=== PATIENT | female | born 1950 | race Two or more races ===

== ENCOUNTER 2022-10-23 17:23 | Inpatient (IN) | payer OTHER ==
[~2022-10-23] VITALS: Ht 157.5 cm; Wt 60.3 kg
[2022-10-23] MEDS ORDERED: SYNTHROID100 MCG PO (18:03)
[2022-10-23] MEDS ORDERED: SYNTHROID88 MCG PO (18:03)
--- NOTE | 2022-10-23 18:14 | NUR ---
SE RECIBE PTE ALERTA Y ORIENTADA X3 CUAL REFIERE DOLOR ABDOMINAL LADO DERECHO, DIARREAS Y VOMITOS DESDE MARYCARMEN. SE JIM S/V, SE REALIZA EKG Y S EPRESENTA A , REFIERE UBICAR EN AYDEN #13 BP MANUAL 78/40.
--- NOTE | 2022-10-23 18:32 | NUR ---
SE EDUCA PACIENTE SOBRE EL [place] MEDICO Y ESTA REFIER ENTENDER. SE CANALIZA Y SE COLOCA IVF Y SE ADMINITRAN MEDICAMENTOS YOSHI ORDEN MEDICA. SE JIM MUESTRAS DE RASHAAD Y SE ENVIAN. SE ENTREGA POTE DE FECAL
--- NOTE | 2022-10-23 22:11 | NUR ---
SE MONITOREAN BP EN SE NOTIFICA A KRYSTIN INDICA MANTENER EN OBSERVACION HASTA QUE INDIQUE LA LASHAY. ADDMITING.
--- NOTE | 2022-10-23 22:40 | NUR ---
se recibe pte femenina de 72 anos alerta y orientada x3 quien al momento refier shawna tener dolor. pte se obserba en descanso absoluto en cama. pte pend a consulta con med interna. pte al momento drip de 0.9% nss a 150ml/hr. pte bajo obserbacion por cambio en servin condicion. pte conectada a monitor cardiaco.
[2022-10-28] MEDS ORDERED: PIROXICAM20 MG (14:52)
[2022-10-28] MEDS ORDERED: MAXIMUM D3325 MCG (14:52)
[2022-10-28] MEDS ORDERED: HYOSCYAMINE0.125 M1 (14:52)
== END 2022-11-03 13:19 | disposition home or self-care (01) | DRG 371 ==
LOC: ER 17:23 → ICU 23:05 → ICU-2 23:05 → ICU 10-24 21:00 → SURH 10-27 20:50
PROVIDERS: ADMIT Internal Medicine; ATTEND Internal Medicine
PROC: BW21ZZZ Computerized Tomography (CT Scan) of Abdomen and Pelvis (ICD-10-PCS; 2022-10-23)
PROC: 4A12X4Z Monitoring of Cardiac Electrical Activity, External Approach (ICD-10-PCS; principal; 2022-10-29)
PROC: BW21YZZ Computerized Tomography (CT Scan) of Abdomen and Pelvis using Other Contrast (ICD-10-PCS; 2022-10-31)
DX: A04.72 Enterocolitis due to Clostridium difficile, not specified as recurrent (principal); R65.21 Severe sepsis with septic shock; N17.9 Acute kidney failure, unspecified; K90.49 Malabsorption due to intolerance, not elsewhere classified; E86.0 Dehydration; E87.6 Hypokalemia; E83.42 Hypomagnesemia; E03.9 Hypothyroidism, unspecified; Z20.822 Contact with and (suspected) exposure to COVID-19; N20.0 Calculus of kidney; D69.6 Thrombocytopenia, unspecified

== ENCOUNTER 2024-11-03 16:40 | Emergency (ER) | payer OTHER ==
[~2024-11-03] VITALS: Ht 157.5 cm; Wt 61.2 kg
[~2024-11-03 16:40] MED LIST: HYOSCYAMINE0.125 M1; MAXIMUM D3325 MCG; PIROXICAM20 MG; SYNTHROID100 MCG PO; SYNTHROID88 MCG PO
[2024-11-03] MEDS ORDERED: 0.9 % SODIUM CHLORIDE 1,000 ML IV ONE (17:45)
[2024-11-03] MEDS ORDERED: FAMOtidine 10 MG/ML (4ML VIAL) IV ONE (17:45)
[2024-11-03] MEDS ORDERED: HYOSCYAMINE SULFATE 0.125 MG TAB.SUBL SL ONE (17:45)
[2024-11-03 18:41] LABS: BASO % 0.2 % (0.1-1.2); HEMATOCRIT 35.7 % (34.1-44.9); HEMOGLOBIN 11.9 g/dL (11.2-15.7); LYMPH # 0.49 (1.18-3.74); LYMPH % 2.3 % (19.3-53.1); MEAN CORPUSCULAR HEMOGLOBIN 27.9 pg (25.6-32.2); MONO # 1.02 (0.24-0.82); MONO % 4.8 % (4.7-12.5); NEUT # 19.64 (1.56-6.13); NEUT % 92.4 % (34.0-71.1); PLATELET COUNT 206 K/uL (163-369); RED BLOOD COUNT 4.26 M/uL (3.93-5.22); RED CELL DISTRIBUTION WIDTH 14.1 % (11.6-14.4)
[2024-11-03 19:26] LABS: ALBUMIN 3.4 gm/dL (3.4-5.0); BILIRUBIN TOTAL 1.08 mg/dL (0.3-1.2); CALCIUM 8.7 mg/dL (8.5-10.1); CREATININE SERUM 0.94 mg/dL (0.55-1.02); GFR 58.37; GLOBULINA 3.9 G/DL (2.4-3.5); POTASSIUM 4.28 mEq/L (3.5-5.1); TOTAL PROTEIN 7.3 gm/dL (6.4-8.2)
[2024-11-03 19:28] LABS: COVID-19 AG NEGATIVE (NEGATIVE); INFLUENZA A AG NEGATIVE (NEGATIVE)
[2024-11-03] MEDS ORDERED: PIPERACILLIN/TAZOBACTAM SODIUM 3.375 GM VIAL IV ONE (21:15)
[2024-11-04 00:32] LABS: BASO % 0.3 % (0.1-1.2); EOS # 0.01 (0.04-0.54); EOS % 0.1 % (0.7-7.0); LYMPH # 0.68 (1.18-3.74); LYMPH % 4.4 % (19.3-53.1); MEAN CORPUSCULAR HEMOGLOBIN 27.5 pg (25.6-32.2); MONO # 0.65 (0.24-0.82); MONO % 4.2 % (4.7-12.5); NEUT # 14.09 (1.56-6.13); NEUT % 90.7 % (34.0-71.1); PLATELET COUNT 202 K/uL (163-369); RED BLOOD COUNT 4.37 M/uL (3.93-5.22); RED CELL DISTRIBUTION WIDTH 14.1 % (11.6-14.4)
[2024-11-04] MEDS ORDERED: KETOROLAC TROMETHAMINE 30 MG VIAL IV STA (01:55)
[2024-11-04 02:10] LABS: URINE APPEARANCE Clear; URINE BILIRRUBIN Negative (NEGATIVE); URINE BLOOD Small; URINE COLOR Yellow; URINE GLUCOSE Negative (NEGATIVE); URINE KETONE Trace (NEGATIVE); URINE LEUKOCYTE Small; URINE NITRATE Positive; URINE PROTEIN 30 (NEGATIVE); URINE UROBILINOGEN 0.2 E.U./dl
[2024-11-04 02:11] LABS: URINE BACTERIA 1007.3 uL (0.0-1933); URINE EPITHELIAL CELLS 10.6 uL (0.0-38.8); URINE RBC 33.1 uL (0.0-20.8); URINE WBC 656.4 uL (0.0-23.2)
[2024-11-04] MEDS ORDERED: CEFAZOLIN SODIUM 1,000 MG VIAL IV STA (03:48)
== END 2024-11-04 06:01 | disposition home or self-care (01) ==
LOC: ER 18:20
PROVIDERS: General Practice
DX: N39.0 Urinary tract infection, site not specified (principal); R10.32 Left lower quadrant pain; R10.9 Unspecified abdominal pain; Z20.822 Contact with and (suspected) exposure to COVID-19; E03.8 Other specified hypothyroidism
CPT/HCPCS: 36415; 74177; 96365; 96366; 99284; J0690; J1885; J2543; J3490; J7030; Q9965